=== PATIENT | male | born 1990 | race Caucasian/White ===

== ENCOUNTER 2017-09-24 12:48 | Emergency (ER) | payer BC ==
--- NOTE | 2017-09-24 14:57 | Emergency Department Record ---
History of Present Illness - General Chief complaint: ENT Stated complaint: SORE THROAT,DIZZINESS Time Seen by Provider: 09/24/17 14:52 Source: Patient Mode of Arrival: Ambulatory Limitations: No limitations - History of Present Illness Initial comments: The patient is here due to a 1-[address] a [address] with mild cough. He felt lightheaded this AM but is better now. He denies any MARIA, Sputum production, fever, chills, or vomiting. MD complaint: Sore throat Onset/Timin -: Days(s) Location: Throat - Related Data Previous Rx's Medication Instructions Recorded Prednisone [Prednisone 20Mg] 40 mg PO DAILY #8 tab 09/24/17 Allergies Allergy/AdvReac Type Severity Reaction Status Date / Time No Known Drug Allergies Allergy Verified 09/24/17 13:57 Travel Screening - Travel/Exposure Within Last 30 Days Have you traveled within the last 30 days?: No Review of Systems Constitutional: Denies: Chills, Fever Eyes: Denies: Eye discharge ENT: Reports: Throat pain. Denies: Congestion Respiratory: Denies: Cough, Dyspnea Past Medical History - SOCIAL HISTORY Smoking Status: Never smoker Alcohol Use: Occasional Drug Use: None - RESPIRATORY Hx Respiratory Disorders: Yes Hx Asthma: Yes - CARDIOVASCULAR Hx Cardio Disorders: No - NEURO Hx Neuro Disorders: No - GI Hx GI Disorders: No - Hx Genitourinary Disorders: Yes Hx Kidney Stones: Yes - ENDOCRINE Hx Endocrine Disorders: No - MUSCULOSKELETAL Hx Musculoskeletal Disorders: No - PSYCH Hx Psych Problems: No - HEMATOLOGY/ONCOLOGY Hx Hematology/Oncology Disorders: No Family Medical History Any Significant Family History?: Yes Hx Stroke: Father Physical Exam - General General Appearance: Alert, Oriented x3, Cooperative, No acute distress - Head Head exam: Atraumatic, Normocephalic, Normal inspection - Eye Eye exam: Normal appearance, PERRL - ENT Teeth exam: Other Throat exam: Tonsillar erythema. negative: Normal inspection, Tonsillomegaly, Tonsillar exudate, R peritonsillar mass, L peritonsillar mass - Neck Neck exam: Normal inspection, Full ROM. negative: Lymphadenopathy, Meningismus , Tenderness - Respiratory Respiratory exam: Normal lung sounds bilaterally. negative: Respiratory distress - Cardiovascular Cardiovascular Exam: Regular rate, Normal rhythm, Normal heart sounds - Extremities Extremities exam: Normal inspection, Full ROM, Normal capillary refill. negative: Tenderness Course Vital Signs 09/24/17 09/24/17 13:52 14:14 Temperature 97.9 F Pulse Rate 66 Respiratory 18 Rate Blood Pressure 131/71 Pulse Ox 98 - Reevaluation(s) Reevaluation #1: I did inform the patient of the neg Strep test. He will be discharged on Tylenol and a short course of Pred. 09/24/17 15:13 09/24/17 15:13 Medical Decision Making - Data Complexity MDM Data: Labs Ordered and/or Reviewed (Strep: Neg) Disposition Disposition: Discharge Clinical Impression: Viral URI Disposition: Home, Self-Care Condition: (2) Stable Instructions: Viral Syndrome (ED) Additional Instructions: Please take Tylenol or Motrin for pain and take the Prednisone as directed. Please see your PCP for recheck in 3 days if not better and return to the ER if worse. Prescriptions: Prednisone [Prednisone 20Mg] 40 mg PO DAILY #8 tab Forms: Patient Portal Access Time of Disposition: 15:14 Quality - Quality Measures Quality Measures: N/A - Blood Pressure Screening View Details: Yes Does Patient Have Any of the Following: No Blood Pressure Classification: Pre-Hypertensive BP Reading Systolic Measurement: 131 Diastolic Measurement: 71 Screening for High Blood Pressure: < Pre-Hypertensive BP, F/U Documented > [ G8950] Pre-Hypertensive Follow-up Interventions: Referral to alternative/primary care provider.
== END 2017-09-24 15:21 | disposition home or self-care (01) ==
LOC: ER 12:48
DX: J06.9 Acute upper respiratory infection, unspecified (principal); R42 Dizziness and giddiness
CPT/HCPCS: 87880; 99282

== ENCOUNTER 2017-11-19 16:45 | Emergency (ER) | payer BC ==
[2017-11-19 17:17] LABS: INFLUENZA A NEGATIVE (NEGATIVE); INFLUENZA B NEGATIVE (NEGATIVE)
[2017-11-19] MEDS ORDERED: PREDNISONE 20 MG TAB PO ONE (17:18)
[2017-11-19] MEDS ORDERED: IPRATROPIUM/ALBUTEROL (0.5MG/3MG) NEB INH ONE (17:18)
--- NOTE | 2017-11-19 17:25 | Emergency Department Record ---
History of Present Illness - General Chief Complaint: Cough Stated Complaint: MELONY,COUGH Time Seen by Provider: 11/19/17 17:12 Source: Patient Mode of Arrival: Ambulatory Limitations: No limitations - History of Present Illness Initial Comments: 27 yo male presents with cough, some yellow sputum, aches. He has a history of asthma. He has been using an inhaler without significant improvement. No NVD. No chest pain. No abdominal pain. MD Complaint: Cough, Nasal congestion, Rhinorrhea, Sore throat Onset/Timin -: Days(s) Severity: Moderate Consistency: Constant - Related Data Previous Rx's Medication Instructions Recorded Albuterol Sulfate [Proair Hfa] 1 - 2 puff IH .EVERY 4-6 HOURS PRN 11/19/17 #1 inhaler Azithromycin [Zithromax] 250 mg PO DAILY #6 tablet 11/19/17 Prednisone [Prednisone 20Mg] 20 mg PO BID #10 tab 11/19/17 Allergies Allergy/AdvReac Type Severity Reaction Status Date / Time No Known Drug Allergies Allergy Verified 09/24/17 13:57 Travel Screening - Travel/Exposure Within Last 30 Days Have you traveled within the last 30 days?: No Review of Systems Constitutional: Denies: Chills, Fever, Malaise, Weakness Eyes: Denies: Eye discharge ENT: Reports: Congestion Respiratory: Reports: Cough, Wheezes. Denies: Hemoptysis Cardiovascular: Denies: Chest pain, Palpitations, Syncope Endocrine: Denies: Fatigue Gastrointestinal: Denies: Abdominal pain, Diarrhea, Nausea, Vomiting Genitourinary: Denies: Dysuria, Frequency, Hematuria Musculoskeletal: Reports: Myalgia. Denies: Arthralgia, Back pain, Joint swelling Skin: Denies: Bruising, Change in color, Rash Neurological: Denies: Headache, Numbness, Weakness Psychiatric: Denies: Anxiety Hematological/Lymphatic: Denies: Easy bleeding, Easy bruising, Swollen glands Past Medical History - SOCIAL HISTORY Smoking Status: Never smoker - RESPIRATORY Hx Respiratory Disorders: Yes Hx Asthma: Yes - CARDIOVASCULAR Hx Cardio Disorders: No - NEURO Hx Neuro Disorders: No - GI Hx GI Disorders: No - Hx Genitourinary Disorders: Yes Hx Kidney Stones: Yes - ENDOCRINE Hx Endocrine Disorders: No - MUSCULOSKELETAL Hx Musculoskeletal Disorders: No - PSYCH Hx Psych Problems: No - HEMATOLOGY/ONCOLOGY Hx Hematology/Oncology Disorders: No Family Medical History Any Significant Family History?: Yes Hx Stroke: Father Physical Exam - General General Appearance: Alert, Oriented x3, Cooperative, No acute distress Limitations: No limitations - Head Head exam: Normal inspection - Eye Eye exam: Normal appearance. negative: Conjunctival injection, Scleral icterus - ENT ENT exam: Normal exam, Mucous membranes moist, Normal orophraynx Ear exam: Normal external inspection Nasal Exam: Normal inspection Mouth exam: Normal external inspection Teeth exam: Normal inspection Throat exam: Normal inspection - Neck Neck exam: Normal inspection, Full ROM. negative: Tenderness - Respiratory Respiratory exam: Decreased breath sounds, Prolonged expiratory (mild), Rhonchi (few scattered), Wheezes. negative: Normal lung sounds bilaterally, Accessory muscle use, Rales - Cardiovascular Cardiovascular Exam: Regular rate, Normal rhythm, Normal heart sounds - GI/Abdominal GI/Abdominal exam: Soft. negative: Tenderness - Rectal Rectal exam: Deferred - exam: Deferred - Extremities Extremities exam: Normal inspection, Full ROM, Normal capillary refill. negative: Tenderness - Back Back exam: Reports: Normal inspection, Full ROM. Denies: Muscle spasm, Rash noted, Tenderness - Neurological Neurological exam: Alert, Normal gait, Oriented X3 - Psychiatric Psychiatric exam: Normal affect, Normal mood - Skin Skin exam: Dry, Intact, Normal color, Warm Course Vital Signs 11/19/17 16:49 Temperature 99.2 F Pulse Rate 108 H Respiratory 20 Rate Blood Pressure 115/68 Pulse Ox 96 - Reevaluation(s) Reevaluation #1: The influenza swabs were negative 11/19/17 17:29 Medical Decision Making - Lab Data Lab Results 11/19/17 Range/Units 17:00 Influenza Type A Ag Negative (NEGATIVE) Influenza Type B Ag Negative (NEGATIVE) Disposition Disposition: Discharge Clinical Impression: Bronchitis, Asthma exacerbation Disposition: Home, Self-Care Condition: (1) Good Instructions: Asthma (ED), Acute Bronchitis (ED) Additional Instructions: Call your doctor for close follow up of your symptoms Return to the ED if worse Prescriptions: Albuterol Sulfate [Proair Hfa] 1 - 2 puff IH .EVERY 4-6 HOURS PRN #1 inhaler PRN Reason: Difficulty In Breathing Azithromycin [Zithromax] 250 mg PO DAILY #6 tablet Prednisone [Prednisone 20Mg] 20 mg PO BID #10 tab Forms: Patient Portal Access Time of Disposition: 17:33 Quality - Quality Measures Quality Measures: N/A - Blood Pressure Screening Does Patient Have Any of the Following: No Blood Pressure Classification: Normal BP Reading Systolic Measurement: 115 Diastolic Measurement: 68 Screening for High Blood Pressure: < Normal BP, F/U Not Required > [G8783]
== END 2017-11-19 18:03 | disposition home or self-care (01) ==
LOC: ER 16:45
DX: J45.901 Unspecified asthma with (acute) exacerbation (principal)
CPT/HCPCS: 99283 ×2; 87400; 94640; J7512

== ENCOUNTER 2018-06-30 05:36 | Emergency (ER) | payer BC ==
[2018-06-30] MEDS ORDERED: IPRATROPIUM/ALBUTEROL (0.5MG/3MG) NEB INH ONE (05:43)
[2018-06-30] MEDS ORDERED: PREDNISONE 20 MG TAB PO ONE (05:57)
--- NOTE | 2018-06-30 06:05 | Emergency Department Record ---
History of Present Illness - General Chief Complaint: Wheezing Stated Complaint: ASTHMA Time Seen by Provider: 06/30/18 05:43 Source: Patient Mode of Arrival: Ambulatory Limitations: No limitations - History of Present Illness Initial Comments: The patient is here due to a one week hx of cough, congestion and SOB. He has a hx of mild asthma and the infection has flared his asthma up. The patient states his coughing and wheezing are worse at night also. He denies any fever, chills, CP, ST or back pain. The patient has never been admitted to the hospital for asthma but has been to the ER for it. MD Complaint: "Asthma attack", Shortness of breath Onset/Timin -: Week(s) Severity: Moderate Context: Other Associated Symptoms: Productive cough Treatments Prior to Arrival: Inhaled bronchodilator - Related Data Current Asthma Therapy: Inhaled bronchodilator Previous Rx's Medication Instructions Recorded Albuterol Sulfate [Proair Hfa] 1 - 2 puff IH .EVERY 4-6 HOURS PRN 11/19/17 #1 inhaler Azithromycin [Zithromax] 250 mg PO ASDIR #6 tab 06/30/18 Prednisone [Prednisone 20Mg] 40 mg PO DAILY #8 tab 06/30/18 Allergies Allergy/AdvReac Type Severity Reaction Status Date / Time No Known Drug Allergies Allergy Unverified 06/13/18 10:39 Travel Screening - Travel/Exposure Within Last 30 Days Have you traveled within the last 30 days?: No - Travel Symptoms Symptom Screening: None Review of Systems Constitutional: Denies: Chills, Fever Eyes: Denies: Eye discharge ENT: Reports: Congestion Respiratory: Reports: Cough, Dyspnea. Denies: Hemoptysis Cardiovascular: Denies: Chest pain Past Medical History - SOCIAL HISTORY Smoking Status: Never smoker Alcohol Use: Occasional Drug Use: None - RESPIRATORY Hx Respiratory Disorders: Yes Hx Asthma: Yes - CARDIOVASCULAR Hx Cardio Disorders: No - NEURO Hx Neuro Disorders: No - GI Hx GI Disorders: No - Hx Genitourinary Disorders: Yes Hx Kidney Stones: Yes - ENDOCRINE Hx Endocrine Disorders: No - MUSCULOSKELETAL Hx Musculoskeletal Disorders: No - PSYCH Hx Psych Problems: No - HEMATOLOGY/ONCOLOGY Hx Hematology/Oncology Disorders: No Family Medical History Any Significant Family History?: Yes Hx Stroke: Father Physical Exam - General General Appearance: Alert, Oriented x3, Cooperative, No acute distress - Head Head exam: Atraumatic, Normocephalic, Normal inspection - Eye Eye exam: Normal appearance, PERRL, EOMI - ENT Throat exam: Normal inspection. negative: Tonsillar erythema, Tonsillar exudate - Neck Neck exam: Normal inspection, Full ROM. negative: Tenderness - Respiratory Respiratory exam: Wheezes (There are mild wheezes at the bases.). negative: Normal lung sounds bilaterally (The patient is speaking in full sentences with no retractions or fast breathing. ), Accessory muscle use, Respiratory distress , Rhonchi, Stridor - Cardiovascular Cardiovascular Exam: Regular rate, Normal rhythm, Normal heart sounds - GI/Abdominal GI/Abdominal exam: Soft, Normal bowel sounds. negative: Tenderness - Extremities Extremities exam: Normal inspection, Full ROM, Normal capillary refill. negative: Tenderness Course Vital Signs 06/30/18 06/30/18 05:41 05:49 Temperature 97.8 F Pulse Rate 80 Pulse Rate [ 87 Pulse Ox Probe] Respiratory 16 16 Rate Blood Pressure 116/92 [Left Arm] Pulse Ox 99 - Reevaluation(s) Reevaluation #1: The patient did receive a Duoneb tx and his lungs are now clear with no wheezing or rhonchi. He feels ready for home. 06/30/18 06:02 Disposition Disposition: Discharge Clinical Impression: Asthma attack Qualifiers: Asthma severity: mild Asthma persistence: unspecified Qualified Code(s): J45.901 - Unspecified asthma with (acute) exacerbation Disposition: Home, Self-Care Condition: (2) Stable Instructions: Asthma (ED) Additional Instructions: Please continue your inhallers and add the Prednisone and Zithromax. Please see your family doctor if not better in 3 days and return to the ER for any worsening symptoms, chest pain, shortness of breath or wheezing. Prescriptions: Azithromycin [Zithromax] 250 mg PO ASDIR #6 tab Prednisone [Prednisone 20Mg] 40 mg PO DAILY #8 tab Forms: Patient Portal Access Time of Disposition: 06:04 Quality - Quality Measures Quality Measures: N/A - Blood Pressure Screening View Details: Yes Does Patient Have Any of the Following: No Blood Pressure Classification: Hypertensive Reading Systolic Measurement: 116 Diastolic Measurement: 92 Screening for High Blood Pressure: < First Hypertensive BP, F/U Documented > [ G8950] First Hypertensive Follow-up Interventions: Referral to alternative/primary care provider.
== END 2018-06-30 06:13 | disposition home or self-care (01) ==
LOC: ER 05:36
DX: J45.901 Unspecified asthma with (acute) exacerbation (principal); R06.02 Shortness of breath
CPT/HCPCS: 99283 ×2; 94640; J7512

== ENCOUNTER 2018-12-15 07:20 | Emergency (ER) | payer BC ==
--- NOTE | 2018-12-15 07:54 | Emergency Department Record ---
History of Present Illness - General Chief complaint: Cold Stated complaint: SINUS PAIN Time Seen by Provider: 12/15/18 07:29 Source: Patient Mode of Arrival: Ambulatory Limitations: No limitations - History of Present Illness Initial comments: pt woke up with a sudden bad miramontes at 4am on thr r side of his head. he then had sinus drainage. he has a sore throat. he went to work and they sent him here stating that he looked bad. MD complaint: Other Onset/Timin -: Hour(s) Severity scale (1-10): 3 Quality: Aching Consistency: Constant Improves with: None Worsens with: None Associated Symptoms: Cough, Sore throat - Related Data Previous Rx's Medication Instructions Recorded Albuterol Sulfate [Proair Hfa] 1 - 2 puff IH .EVERY 4-6 HOURS PRN 11/19/17 #1 inhaler Allergies Allergy/AdvReac Type Severity Reaction Status Date / Time No Known Drug Allergies Allergy Verified 12/15/18 07:29 Travel Screening - Travel/Exposure Within Last 30 Days Have you traveled within the last 30 days?: No Review of Systems Reviewed: No additional complaints except as noted below Constitutional: Reports: As per HPI. Denies: Chills, Fever, Malaise, Night sweats, Weakness, Weight change Eyes: Reports: As per HPI. Denies: Eye discharge, Eye pain, Photophobia, Vision change ENT: Reports: As per HPI, Congestion. Denies: Dental pain, Ear pain, Epistaxis , Hearing loss, Throat pain Respiratory: Reports: As per HPI, Cough. Denies: Dyspnea, Hemoptysis, Stridor, Wheezes Cardiovascular: Reports: As per HPI. Denies: Arrhythmia, Chest pain, Dyspnea on exertion, Edema, Murmurs, Orthopnea, Palpitations, Paroxysmal nocturnal dyspnea, Rheumatic Fever, Syncope Endocrine: Reports: As per HPI. Denies: Fatigue, Heat or cold intolerance, Polydipsia, Polyuria Gastrointestinal: Reports: As per HPI. Denies: Abdominal pain, Constipation, Diarrhea, Hematemesis, Hematochezia, Melena, Nausea, Vomiting Genitourinary: Reports: As per HPI. Denies: Dysuria, Frequency, Hematuria, Incontinence, Retention, Testicular pain, Testicular mass, Urgency Musculoskeletal: Reports: As per HPI. Denies: Arthralgia, Back pain, Gout, Joint swelling, Myalgia, Neck pain Skin: Reports: As per HPI. Denies: Bruising, Change in color, Change in hair/ nails, Lesions, Pruritus, Rash Neurological: Reports: As per HPI. Denies: Abnormal gait, Confusion, Headache, Numbness, Paresthesias, Seizure, Tingling, Tremors, Vertigo, Weakness Psychiatric: Reports: As per HPI. Denies: Anxiety, Auditory hallucinations, Depression, Homicidal thoughts, Suicidal thoughts, Visual hallucinations Hematological/Lymphatic: Reports: As per HPI. Denies: Anemia, Blood Clots, Easy bleeding, Easy bruising, Swollen glands Past Medical History - SOCIAL HISTORY Smoking Status: Never smoker Alcohol Use: Occasional Drug Use: None - RESPIRATORY Hx Respiratory Disorders: Yes Hx Asthma: Yes - CARDIOVASCULAR Hx Cardio Disorders: No - NEURO Hx Neuro Disorders: No - GI Hx GI Disorders: No - Hx Genitourinary Disorders: Yes Hx Kidney Stones: Yes - ENDOCRINE Hx Endocrine Disorders: No - MUSCULOSKELETAL Hx Musculoskeletal Disorders: No - PSYCH Hx Psych Problems: No - HEMATOLOGY/ONCOLOGY Hx Hematology/Oncology Disorders: No Family Medical History Any Significant Family History?: Yes Hx Stroke: Father Physical Exam - General General Appearance: Alert, Oriented x3, Cooperative, Mild distress - Head Head exam: Normal inspection - Eye Eye exam: Normal appearance, PERRL, EOMI Pupils: Normal accommodation - ENT ENT exam: Normal exam, Mucous membranes moist, Normal external ear exam, Normal orophraynx, TM's normal bilaterally Ear exam: Normal external inspection. negative: External canal tenderness Nasal Exam: Sinus tenderness. negative: Discharge Mouth exam: Normal external inspection, Tongue normal Teeth exam: Normal inspection. negative: Dental caries Throat exam: Tonsillar erythema. negative: Tonsillar exudate - Neck Neck exam: Normal inspection, Full ROM. negative: Tenderness - Respiratory Respiratory exam: Normal lung sounds bilaterally. negative: Respiratory distress - Cardiovascular Cardiovascular Exam: Regular rate, Normal rhythm, Normal heart sounds - GI/Abdominal GI/Abdominal exam: Soft, Normal bowel sounds. negative: Tenderness - Rectal Rectal exam: Deferred - exam: Deferred - Extremities Extremities exam: Normal inspection, Full ROM, Normal capillary refill. negative: Tenderness - Back Back exam: Reports: Normal inspection, Full ROM. Denies: Muscle spasm, Rash noted, Tenderness - Neurological Neurological exam: Alert, CN II-XII intact, Normal gait, Oriented X3 - Psychiatric Psychiatric exam: Normal affect, Normal mood - Skin Skin exam: Dry, Intact, Normal color, Warm Course Vital Signs 12/15/18 07:25 Temperature 98.1 F Pulse Rate [ 85 Pulse Ox Probe] Respiratory 20 Rate Blood Pressure 118/89 [Left Arm] Pulse Ox 97 Medical Decision Making - Lab Data Result diagrams: 12/15/18 07:50 12/15/18 07:50 Disposition Disposition: Discharge Clinical Impression: Viral syndrome Disposition: Home, Self-Care Condition: (1) Good Instructions: Viral Syndrome (ED) Additional Instructions: follow up with family doctor. rest return sooner if worse. tylenol or motrin as needed. push fluids Forms: Patient Portal Access, Return to Work/School Quality - Quality Measures Quality Measures: N/A - Blood Pressure Screening Does Patient Have Any of the Following: No Blood Pressure Classification: Pre-Hypertensive BP Reading Systolic Measurement: 118 Diastolic Measurement: 89 Screening for High Blood Pressure: < Pre-Hypertensive BP, F/U Documented > [ G8950] Pre-Hypertensive Follow-up Interventions: Follow-up with rescreen every year.
[2018-12-15 07:59] LABS: BASO % 0.6 % (0-6); EOS % 8.9 % (0-6); GRAN % 65.9 % (47-80); HEMATOCRIT 44.6 % (42.0-52.0); HEMOGLOBIN 15.8 gm/dl (14.0-18.0); LYMPH % 18.6 % (16-45); MEAN CELL VOLUME 89.4 fl (81-97); MEAN CORPUSCULAR HEMOGLOBIN 31.7 pg (27-33); MEAN CORPUSCULAR HGB CONC 35.4 g/dl (32-36); MEAN PLATELET VOLUME 10.1 fl (7.4-10.4); PLATELET COUNT 332 K/uL (130-400); RED BLOOD COUNT 4.99 M/uL (4.40-5.70); RED CELL DISTRIBUTION WIDTH 13.2 % (11.5-14.5)
[2018-12-15 08:03] LABS: STREP A SCREEN NEGATIVE (NEGATIVE)
[2018-12-15 08:09] LABS: BLOOD UREA NITROGEN 12 mg/dL (6-20)
[2018-12-15 08:10] LABS: CREATININE 0.9 mg/dL (0.7-1.2); EST GLOMERULAR FILTRATION RATE > 60 mL/min
[2018-12-15 08:12] LABS: GLUCOSE,RANDOM 110 mg/dL (74-109)
[2018-12-15 08:13] LABS: INFLUENZA A NEGATIVE (NEGATIVE); INFLUENZA B NEGATIVE (NEGATIVE)
--- NOTE | 2018-12-16 12:13 | CT SCAN REPORT ---
EXAM: NONCONTRAST CT OF THE BRAIN HISTORY: RIGHT SINUS PAIN, HEADACHE. TECHNIQUE: Noncontrast CT of the brain was obtained. Comparison: None. FINDINGS: No midline shift, mass effect, or abnormal intra or extraaxial fluid collection. No cerebral edema, focal mass or intracranial hemorrhage detected. The ventricle sizes are within normal limits. The basal cisterns are not effaced. Mild partial opacification of bilateral ethmoid air cells. Minimal right maxillary sinus mucosal thickening. Rightward deviation of the nasal septum. No displaced calvarial fracture detected. IMPRESSION: 1. NO ACUTE INTRACRANIAL FINDINGS. 2. MILD PARTIAL OPACIFICATION OF THE ETHMOID AIR CELLS BILATERALLY. MINIMAL ASYMMETRIC RIGHT MAXILLARY SINUS MUCOSAL THICKENING. JOB NUMBER: [id number] [facility]
== END 2018-12-15 08:30 | disposition home or self-care (01) ==
LOC: ER 07:20
DX: B34.9 Viral infection, unspecified (principal); J02.9 Acute pharyngitis, unspecified; R51 Headache
CPT/HCPCS: 70450; 80048; 85025; 87400; 87880; 99283

== ENCOUNTER 2019-01-30 11:38 | Emergency (ER) | payer BC ==
[2019-01-30] MEDS ORDERED: 0.9 % SODIUM CHLORIDE 1,000 ML BAG IV ONE (11:47)
--- NOTE | 2019-01-30 11:53 | Emergency Department Record ---
History of Present Illness - General Chief complaint: General Stated complaint: LIGHTHEADED Time Seen by Provider: 01/30/19 11:40 Source: Patient Mode of Arrival: Ambulatory Limitations: No limitations - History of Present Illness Initial comments: 28 yo male states he has not felt well since about 6am. He woke up at 5:15am and felt normal. He states he began to feel weak, shaky, lightheaded, some palpitations. He felt like his heart rate was fast then slow. No headache, vision changes, syncope, dizziness, speech or hearing changes. No cough, s hortness of breath, chest or back pain. No recent illness. He states his allergies to pollen have been his only recent concerns. No nausea, vomiting or diarrhea. He was sent from work given the persistence of the symptoms. No PCP. MD Complaint: Generalized weakness -: Hour(s) (5) Location: Generalized Severity: Moderate Quality: Other (shaky) Improves with: None Worsens with: Exertion Context: Other Associated Symptoms: Other - [place] Coma Scale Eye Response: (4) Open spontaneously Motor Response: (6) Obeys commands Verbal Response: (5) Oriented [place] Total: 15 - Related Data Previous Rx's Medication Instructions Recorded Albuterol Sulfate [Proair Hfa] 1 - 2 puff IH .EVERY 4-6 HOURS PRN 11/19/17 #1 inhaler Allergies Allergy/AdvReac Type Severity Reaction Status Date / Time No Known Drug Allergies Allergy Verified 12/15/18 07:29 Travel Screening - Travel/Exposure Within Last 30 Days Have you traveled within the last 30 days?: No Review of Systems Constitutional: Reports: Weakness. Denies: Chills, Fever, Malaise, Night sweats Eyes: Denies: Eye discharge, Eye pain, Photophobia, Vision change ENT: Denies: Congestion, Ear pain, Epistaxis, Throat pain Respiratory: Denies: Cough, Dyspnea, Hemoptysis, Stridor, Wheezes Cardiovascular: Reports: Palpitations. Denies: Chest pain, Dyspnea on exertion, Edema, Syncope Endocrine: Reports: Fatigue. Denies: Polydipsia, Polyuria Gastrointestinal: Denies: Abdominal pain, Constipation, Diarrhea, Hematochezia, Melena, Nausea, Vomiting Genitourinary: Denies: Dysuria, Frequency, Hematuria Musculoskeletal: Denies: Arthralgia, Back pain, Joint swelling, Myalgia, Neck pain Skin: Denies: Bruising, Change in color, Rash Neurological: Denies: Confusion, Headache Psychiatric: Denies: Anxiety Hematological/Lymphatic: Denies: Blood Clots, Easy bleeding, Easy bruising, Swollen glands Past Medical History - SOCIAL HISTORY Smoking Status: Never smoker Alcohol Use: None Drug Use: None - RESPIRATORY Hx Respiratory Disorders: Yes Hx Asthma: Yes - CARDIOVASCULAR Hx Cardio Disorders: No - NEURO Hx Neuro Disorders: No - GI Hx GI Disorders: No - Hx Genitourinary Disorders: Yes Hx Kidney Stones: Yes - ENDOCRINE Hx Endocrine Disorders: No - MUSCULOSKELETAL Hx Musculoskeletal Disorders: No - PSYCH Hx Psych Problems: No - HEMATOLOGY/ONCOLOGY Hx Hematology/Oncology Disorders: No Family Medical History Any Significant Family History?: Yes Hx Stroke: Father Physical Exam - General General Appearance: Alert, Oriented x3, Cooperative, No acute distress Limitations: No limitations - Head Head exam: Atraumatic, Normocephalic, Normal inspection - Eye Eye exam: Normal appearance, PERRL, EOMI, Other (No visual field changes). negative: Conjunctival injection, Nystagmus, Scleral icterus - ENT ENT exam: Normal exam, Mucous membranes moist, Normal external ear exam Ear exam: Normal external inspection Nasal Exam: Normal inspection Mouth exam: Normal external inspection Teeth exam: Normal inspection Throat exam: Normal inspection. negative: Tonsillar erythema, Tonsillomegaly, Tonsillar exudate, R peritonsillar mass, L peritonsillar mass - Neck Neck exam: Normal inspection, Full ROM. negative: Lymphadenopathy, Tenderness, Thyromegaly - Respiratory Respiratory exam: Normal lung sounds bilaterally. negative: Respiratory distress, Rhonchi, Stridor, Wheezes - Cardiovascular Cardiovascular Exam: Regular rate, Normal rhythm, Normal heart sounds. negative: Diastolic murmur, Irregular rhythm, Systolic murmur Peripheral Pulses: 2+: Radial (R), Radial (L) - GI/Abdominal GI/Abdominal exam: Soft. negative: Distended, Guarding, Tenderness - Rectal Rectal exam: Deferred - exam: Deferred - Extremities Extremities exam: Normal inspection, Full ROM. negative: Joint swelling, Pedal edema, Tenderness - Back Back exam: Denies: CVA tenderness (R), CVA tenderness (L), Rash noted - Neurological Neurological exam: Alert, CN II-XII intact, Normal gait, Oriented X3, Reflexes normal. negative: Abnormal gait, Altered, Motor sensory deficit - Psychiatric Psychiatric exam: Normal affect, Normal mood. negative: Agitated, Anxious - Skin Skin exam: Dry, Intact, Normal color, Warm Course Vital Signs 01/30/19 11:41 Temperature 98.1 F Respiratory 18 Rate Blood Pressure 134/100 - Reevaluation(s) Reevaluation #1: The labs were reviewed No acute changes on the CBC or CMP 01/30/19 12:22 EKG #1: 11:56 Rate: 78 Rhythm: sinus [place]key: normal Intervals: normal ST segments: no acute changes Prior: none 01/30/19 12:24 01/30/19 13:00 The patient is doing well He is feeling much better We discussed off work given he works in a very hot environment He was given home care instructions as well as reasons for immediate return to the ED Medical Decision Making - Lab Data Result diagrams: 01/30/19 11:50 01/30/19 11:50 Disposition Disposition: Discharge Clinical Impression: Weakness, Palpitations Disposition: Home, Self-Care Condition: (1) Good Instructions: Lightheadedness (ED) Additional Instructions: Call for a new family doctor for the next available follow up appointment Review this ER visit and the tests performed with your family doctor Return to the ER for a recheck if worse, any new concerns or questions Referrals: YE ORANTES M.D. [MEDICAL DOCTOR] - Forms: Patient Portal Access Time of Disposition: 13:02 Quality - Quality Measures Quality Measures: N/A - Blood Pressure Screening Does Patient Have Any of the Following: No Blood Pressure Classification: Normal BP Reading Systolic Measurement: 105 Diastolic Measurement: 70 Screening for High Blood Pressure: < Normal BP, F/U Not Required > [G8783]
[2019-01-30 11:58] LABS: ABSOLUTE NEUTROPHIL COUNT 2.94; BASO % 1.1 % (0-6); EOS % 7.5 % (0-6); GRAN % 52.8 % (47-80); HEMATOCRIT 44.5 % (42.0-52.0); HEMOGLOBIN 15.7 gm/dl (14.0-18.0); LYMPH % 32.3 % (16-45); MEAN CELL VOLUME 90.4 fl (81-97); MEAN CORPUSCULAR HEMOGLOBIN 31.9 pg (27-33); MEAN CORPUSCULAR HGB CONC 35.3 g/dl (32-36); MEAN PLATELET VOLUME 9.8 fl (7.4-10.4); MONO % 6.3 % (0-9); PLATELET COUNT 321 K/uL (130-400); RED BLOOD COUNT 4.92 M/uL (4.40-5.70); RED CELL DISTRIBUTION WIDTH 13.2 % (11.5-14.5); WHITE BLOOD COUNT W/O DIFF 5.6 K/uL (4.2-12.2)
[2019-01-30 12:11] LABS: BLOOD UREA NITROGEN 9 mg/dL (6-20)
[2019-01-30 12:12] LABS: CREATININE 0.8 mg/dL (0.7-1.2); EST GLOMERULAR FILTRATION RATE > 60 mL/min; TOTAL PROTEIN 7.8 g/dL (6.6-8.7)
[2019-01-30 12:14] LABS: GLUCOSE,RANDOM 117 mg/dL (74-109)
[2019-01-30 12:17] LABS: ALB/GLOB RATIO 1.8 (1.1-1.8); ALKALINE PHOSPHATASE 75 U/L (40-129); ALT/SGPT 19 U/L (<41); AST/SGOT 22 U/L (10.0-50.0)
== END 2019-01-30 13:10 | disposition home or self-care (01) ==
LOC: ER 11:38
DX: R53.1 Weakness (principal); R00.2 Palpitations; R42 Dizziness and giddiness
CPT/HCPCS: 80053; 85025; 93005; 93010; 96360; 99284; J7030

== ENCOUNTER 2019-03-13 14:07 | Emergency (ER) | payer SELFPAY ==
--- NOTE | 2019-03-13 14:20 | Emergency Department Record ---
History of Present Illness - General Chief Complaint: Laceration(s) Stated Complaint: DUNHAM LAC LEFT LEG Time Seen by Provider: 03/13/19 14:14 Source: Patient Mode of Arrival: Ambulatory Limitations: No limitations - History of Present Illness Initial Commments: 28 yo male presents with a dunham laceration from a part that fell on his leg at work. He is unsure when his last tetanus shot was given. No numbness or tingling. The injury occurred at work from a falling metal part. -: Minutes(s) Extremity Location: Left: Lower leg Place: Home Context: Accidental, Sharp object use Associated Symptoms: None Treatments Prior to Arrival: Bandage - [place] Coma Scale Eye Response: (4) Open spontaneously Motor Response: (6) Obeys commands Verbal Response: (5) Oriented [place] Total: 15 - Related Data Home Medications Medication Instructions Recorded Confirmed Last Taken No Home Med [NO HOME MEDS] 03/13/19 03/13/19 Unknown Allergies Allergy/AdvReac Type Severity Reaction Status Date / Time No Known Drug Allergies Allergy Verified 12/15/18 07:29 Review of Systems Constitutional: Denies: Chills, Fever, Weakness Eyes: Denies: Eye discharge ENT: Denies: Congestion, Throat pain Respiratory: Denies: Cough Cardiovascular: Denies: Chest pain Endocrine: Denies: Fatigue Gastrointestinal: Denies: Abdominal pain, Diarrhea, Nausea, Vomiting Genitourinary: Denies: Dysuria, Frequency, Hematuria Musculoskeletal: Denies: Arthralgia, Back pain, Myalgia Skin: Reports: Other (Laceration) Neurological: Denies: Numbness, Tingling, Weakness Psychiatric: Denies: Anxiety Hematological/Lymphatic: Denies: Easy bleeding, Easy bruising Past Medical History - SOCIAL HISTORY Smoking Status: Never smoker Drug Use: None - RESPIRATORY Hx Respiratory Disorders: Yes Hx Asthma: Yes - CARDIOVASCULAR Hx Cardio Disorders: No - NEURO Hx Neuro Disorders: No - GI Hx GI Disorders: No - Hx Genitourinary Disorders: Yes Hx Kidney Stones: Yes - ENDOCRINE Hx Endocrine Disorders: No - MUSCULOSKELETAL Hx Musculoskeletal Disorders: No - PSYCH Hx Psych Problems: No - HEMATOLOGY/ONCOLOGY Hx Hematology/Oncology Disorders: No Family Medical History Hx Stroke: Father Physical Exam - General General Appearance: Alert, Oriented x3, Cooperative, No acute distress Limitations: No limitations - Head Head exam: Atraumatic, Normal inspection - Eye Eye exam: Normal appearance. negative: Conjunctival injection, Scleral icterus - ENT ENT exam: Normal exam Ear exam: Normal external inspection Nasal Exam: Normal inspection Mouth exam: Normal external inspection - Neck Neck exam: Normal inspection - Rectal Rectal exam: Deferred - exam: Deferred - Extremities Extremities exam: Full ROM, Normal capillary refill, Other (3cm laceration in a eliptical shape, no FB, clean). negative: Normal inspection, Joint swelling, Tenderness - Back Back exam: Reports: Normal inspection - Neurological Neurological exam: Alert, Oriented X3 - Psychiatric Psychiatric exam: Normal affect, Normal mood - Skin Type of lesion: Laceration Course - Reevaluation(s) Reevaluation #1: 03/13/19 15:04 The XR was read as negative for acute bone injury of FB Procedure: 3 cm laceration of the left dunham Wound was cleaned and prepped in sterile fashion, no residual FB identified on examination. The wound was copiously irrigated with NS Wound was anesthetized with 3 mL of 1% Lidocaine with epinephrine The laceration was repaired with Prolene 3-0. 7 sutures in interrupted fashion. Patient tolerated the procedure well without complications. We discussed home care, reasons for immediate return if any concerns, and suture removal in 12 days Disposition Disposition: Discharge Clinical Impression: Skin laceration Disposition: Home, Self-Care Condition: (1) Good Instructions: Laceration (ED) Additional Instructions: Clean the injury twice daily with mild soap and water Return if you have redness, pain, pus, drainage or any concerns for infection Return in 12 days for suture removal Forms: Patient Portal Access Time of Disposition: 15:06 Quality - Quality Measures Quality Measures: N/A - Blood Pressure Screening Does Patient Have Any of the Following: No Blood Pressure Classification: Pre-Hypertensive BP Reading Systolic Measurement: 148 Diastolic Measurement: 81 Screening for High Blood Pressure: < Pre-Hypertensive BP, F/U Documented > [G8950] Pre-Hypertensive Follow-up Interventions: Referral to alternative/primary care provider.
[2019-03-13] MEDS ORDERED: Diph,Pert(Acell),Tet Vac 0.5 ML SYR IM ONE (14:21)
--- NOTE | 2019-03-14 15:49 | RADIOLOGY REPORT ---
EXAM: LOWER LEG, LEFT HISTORY: LARGE LACERATION FROM METAL OBJECT. TECHNIQUE: AP and lateral views of the left lower leg. COMPARISON: Four views of the left knee dated 06/04/2014. ENCOUNTER: Initial. FINDINGS: There is normal bone mineralization. No fracture, dislocation, or destructive bone lesion is seen. The articular relations to the extent visualized are normal. There is band-like lucent defect within the anterior soft tissues at the mid lower leg level consistent with history of laceration. No definite radio-opaque foreign body. IMPRESSION: NO ACUTE BONE NOR JOINT ABNORMALITY. LACERATION TO THE ANTERIOR SOFT TISSUES OF THE MID LOWER LEG WITHOUT DEFINITE FOREIGN BODY. JOB NUMBER: [id number] MTDD
== END 2019-03-13 15:15 | disposition home or self-care (01) ==
LOC: ER 14:07
DX: S81.812A Laceration without foreign body, left lower leg, initial encounter (principal); W22.8XXA Striking against or struck by other objects, initial encounter; Y92.63 Factory as the place of occurrence of the external cause; Y99.0 Civilian activity done for income or pay
CPT/HCPCS: 12002; 90715; 96372; 99283; 99284

== ENCOUNTER 2019-03-25 17:45 | Emergency (ER) | payer SELFPAY ==
--- NOTE | 2019-03-25 17:57 | Emergency Department Record ---
History of Present Illness - General Chief Complaint: Suture removal Stated Complaint: SUTURE REMOVAL Time Seen by Provider: 03/25/19 17:52 Source: Patient, RN notes reviewed - History of Present Illness Initial Comments: suture removal and placed 13 days ago and healing but may open so will steristrip - Related Data Allergies Allergy/AdvReac Type Severity Reaction Status Date / Time No Known Drug Allergies Allergy Verified 03/25/19 17:58 Review of Systems Reviewed: No additional complaints except as noted below Constitutional: Reports: As per HPI. Denies: Chills, Fever, Malaise, Night sweats, Weakness, Weight change Eyes: Reports: As per HPI. Denies: Eye discharge, Eye pain, Photophobia, Vision change ENT: Reports: As per HPI. Denies: Congestion, Dental pain, Ear pain, Epistaxis, Hearing loss, Throat pain Respiratory: Reports: As per HPI. Denies: Cough, Dyspnea, Hemoptysis, Stridor, Wheezes Cardiovascular: Reports: As per HPI. Denies: Arrhythmia, Chest pain, Dyspnea on exertion, Edema, Murmurs, Orthopnea, Palpitations, Paroxysmal nocturnal dyspnea, Rheumatic Fever, Syncope Endocrine: Reports: As per HPI. Denies: Fatigue, Heat or cold intolerance, Polydipsia, Polyuria Gastrointestinal: Reports: As per HPI. Denies: Abdominal pain, Constipation, Diarrhea, Hematemesis, Hematochezia, Melena, Nausea, Vomiting Genitourinary: Reports: As per HPI. Denies: Dysuria, Frequency, Hematuria, Incontinence, Retention, Testicular pain, Testicular mass, Urgency Musculoskeletal: Reports: As per HPI. Denies: Arthralgia, Back pain, Gout, Joint swelling, Myalgia, Neck pain Skin: Reports: As per HPI. Denies: Bruising, Change in color, Change in hair/ nails, Lesions, Pruritus, Rash Neurological: Reports: As per HPI. Denies: Abnormal gait, Confusion, Headache, Numbness, Paresthesias, Seizure, Tingling, Tremors, Vertigo, Weakness Psychiatric: Reports: As per HPI. Denies: Anxiety, Auditory hallucinations, Depression, Homicidal thoughts, Suicidal thoughts, Visual hallucinations Hematological/Lymphatic: Reports: As per HPI. Denies: Anemia, Blood Clots, Easy bleeding, Easy bruising, Swollen glands Past Medical History - SOCIAL HISTORY Smoking Status: Never smoker Drug Use: None - RESPIRATORY Hx Respiratory Disorders: Yes Hx Asthma: Yes - CARDIOVASCULAR Hx Cardio Disorders: No - NEURO Hx Neuro Disorders: No - GI Hx GI Disorders: No - Hx Genitourinary Disorders: Yes Hx Kidney Stones: Yes - ENDOCRINE Hx Endocrine Disorders: No - MUSCULOSKELETAL Hx Musculoskeletal Disorders: No - PSYCH Hx Psych Problems: No - HEMATOLOGY/ONCOLOGY Hx Hematology/Oncology Disorders: No Family Medical History Hx Stroke: Father Physical Exam - General General Appearance: Alert, Oriented x3, Cooperative, No acute distress - Head Head exam: Normal inspection - Eye Eye exam: Normal appearance, PERRL Pupils: Normal accommodation - ENT ENT exam: Normal exam, Mucous membranes moist, Normal external ear exam, Normal orophraynx, TM's normal bilaterally Ear exam: Normal external inspection. negative: External canal tenderness Nasal Exam: Normal inspection. negative: Discharge, Sinus tenderness Mouth exam: Normal external inspection, Tongue normal Teeth exam: Normal inspection. negative: Dental caries Throat exam: Normal inspection. negative: Tonsillar erythema, Tonsillar exudate - Neck Neck exam: Normal inspection, Full ROM. negative: Tenderness - Respiratory Respiratory exam: Normal lung sounds bilaterally. negative: Respiratory distress - Cardiovascular Cardiovascular Exam: Regular rate, Normal rhythm, Normal heart sounds - GI/Abdominal GI/Abdominal exam: Soft, Normal bowel sounds. negative: Tenderness - Rectal Rectal exam: Deferred - exam: Deferred - Extremities Extremities exam: Normal inspection, Full ROM, Normal capillary refill. negative: Tenderness - Back Back exam: Reports: Normal inspection, Full ROM. Denies: Muscle spasm, Rash noted, Tenderness - Neurological Neurological exam: Alert, Normal gait, Oriented X3, Reflexes normal - Psychiatric Psychiatric exam: Normal affect, Normal mood - Skin Skin exam: Dry, Intact, Normal color, Warm Disposition Clinical Impression: Visit for suture removal Disposition: Home, Self-Care Condition: (1) Good Instructions: Stitches Removal (ED) Additional Instructions: follow up with family DrEma Forms: Patient Portal Access Time of Disposition: 17:56 Quality - Quality Measures Quality Measures: N/A - Blood Pressure Screening Does Patient Have Any of the Following: No Blood Pressure Classification: Pre-Hypertensive BP Reading Systolic Measurement: 126 Diastolic Measurement: 77 Screening for High Blood Pressure: < Pre-Hypertensive BP, F/U Documented > [G8950] Pre-Hypertensive Follow-up Interventions: Referral to alternative/primary care provider.
== END 2019-03-25 18:09 | disposition home or self-care (01) ==
LOC: ER 17:45
DX: Z48.02 Encounter for removal of sutures (principal)

== ENCOUNTER 2019-06-21 12:21 | Emergency (ER) | payer BC ==
[2019-06-21] MEDS ORDERED: KETOROLAC 30 MG/ML VIAL IM ONE (12:29)
[2019-06-21] MEDS ORDERED: HYDROCODONE/APAP 5/325MG TABLET PO ONE (12:29)
--- NOTE | 2019-06-21 12:30 | Emergency Department Record ---
History of Present Illness - General Stated Complaint: FALL INJURY Time Seen by Provider: 06/21/19 12:23 Source: Patient Mode of Arrival: Ambulatory Limitations: No limitations - History of Present Illness Initial Comments: 29 yo male presents after an injury 9 days ago on SaturdayJune 12. His 'renee' picked him up and dropped him on a mirror. He has had left lateral rib pain since then. He denies any other injuries. He has pain to palpation and it hurts to take a deep breath. No hemoptysis. No abdominal pain. No hematuria. No other changes in his health. No lacerations. 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) Fall Witnessed: Yes, by family Place Fall Occurred: Home Loss of Consciousness: None Prolonged Down Time?: No Symptoms Prior to Fall: None Location: Chest Severity: Moderate Quality: Aching, Sharp Context: Alcohol use Associated Symptoms: Chest pain - [place] Coma Scale Eye Response: (4) Open spontaneously Motor Response: (6) Obeys commands Verbal Response: (5) Oriented [place] Total: 15 - Related Data Previous Rx's Medication Instructions Recorded Hydrocodone/Acetaminophen [[place] 1 each PO Q6H #8 tablet 06/21/19 5-325 Tablet] Allergies Allergy/AdvReac Type Severity Reaction Status Date / Time No Known Drug Allergies Allergy Verified 06/01/19 09:00 Review of Systems Constitutional: Denies: Chills, Fever, Malaise, Weakness Eyes: Denies: Eye discharge ENT: Denies: Congestion, Epistaxis, Throat pain Respiratory: Denies: Cough, Dyspnea, Hemoptysis, Stridor, Wheezes Cardiovascular: Reports: Chest pain (left lateral rib) Endocrine: Denies: Fatigue Gastrointestinal: Denies: Abdominal pain, Diarrhea, Nausea, Vomiting Genitourinary: Denies: Dysuria, Frequency, Hematuria Musculoskeletal: Denies: Arthralgia, Back pain, Neck pain Neurological: Denies: Confusion, Weakness Psychiatric: Denies: Anxiety Hematological/Lymphatic: Denies: Easy bleeding, Easy bruising Past Medical History - SOCIAL HISTORY Smoking Status: Never smoker Drug Use: None - RESPIRATORY Hx Respiratory Disorders: Yes Hx Asthma: Yes - CARDIOVASCULAR Hx Cardio Disorders: No - NEURO Hx Neuro Disorders: No - GI Hx GI Disorders: No - Hx Genitourinary Disorders: Yes Hx Kidney Stones: Yes - ENDOCRINE Hx Endocrine Disorders: No - MUSCULOSKELETAL Hx Musculoskeletal Disorders: No - PSYCH Hx Psych Problems: No - HEMATOLOGY/ONCOLOGY Hx Hematology/Oncology Disorders: No Family Medical History Hx Stroke: Father Physical Exam - General General Appearance: Alert, Oriented x3, Cooperative, No acute distress Limitations: No limitations - Head Head exam: Atraumatic, Normocephalic, Normal inspection Head exam detail: negative: Abrasion, Contusion, Hematoma - Eye Eye exam: Normal appearance, PERRL. negative: Conjunctival injection, Scleral icterus - ENT ENT exam: Normal exam, Mucous membranes moist Ear exam: Normal external inspection Nasal Exam: Normal inspection Mouth exam: Normal external inspection - Neck Neck exam: Normal inspection, Full ROM. negative: Tenderness - Respiratory Respiratory exam: Normal lung sounds bilaterally, Chest wall tenderness (tender left lateral mid to lower ribs, non tender lowest rib margins, non tender LUQ). negative: Accessory muscle use, Prolonged expiratory, Rhonchi, Stridor, Wheezes - Cardiovascular Cardiovascular Exam: Regular rate, Normal rhythm, Normal heart sounds, Bradycardia - GI/Abdominal GI/Abdominal exam: Soft - Rectal Rectal exam: Deferred - exam: Deferred - Extremities Extremities exam: Normal inspection, Full ROM. negative: Tenderness Image of Full Body: 1 - tender over 2 ribs laterally, normal inspection, clear lungs, non tender lower ribs or LUQ. - Back Back exam: Denies: CVA tenderness (R), CVA tenderness (L), Full ROM, Muscle spasm, Paraspinal tenderness, Tenderness, Vertebral tenderness - Neurological Neurological exam: Alert, Oriented X3 - Psychiatric Psychiatric exam: Normal affect, Normal mood - Skin Skin exam: Dry, Intact, Normal color, Warm Course - Reevaluation(s) Reevaluation #1: 06/21/19 12:34 Vitals reviewed No acute abnormalities. No hypoxia or tachycardia He is point tender over a reproducible area No crepitus, clear lungs. 06/21/19 13:59 The XR was negative for acute fracture He will be treated with symptomatic treatment We discussed reasons to return for a recheck if not improving this week Disposition Disposition: Discharge Clinical Impression: Contusion of rib on left side Disposition: Home, Self-Care Condition: (1) Good Instructions: Rib Contusion (ED) Additional Instructions: Call your doctor for the next available follow up appointment Return to the ER for a recheck if worse, any new concerns or questions Take the prescriptions provided as directed Prescriptions: Hydrocodone/Acetaminophen [[place] 5-325 Tablet] 1 each PO Q6H #8 tablet Forms: Patient Portal Access Time of Disposition: 14:01 Quality - Quality Measures Quality Measures: N/A - Blood Pressure Screening Does Patient Have Any of the Following: No Blood Pressure Classification: Hypertensive Reading Systolic Measurement: 116 Diastolic Measurement: 93 Screening for High Blood Pressure: < Pre-Hypertensive BP, F/U Documented > [G8950] Pre-Hypertensive Follow-up Interventions: Referral to alternative/primary care provider.
--- NOTE | 2019-06-22 13:13 | RADIOLOGY REPORT ---
EXAM: CHEST AND LEFT RIBS HISTORY: INJURY, LEFT RIB PAIN. TECHNIQUE: Four views of the chest and left ribs were obtained. Comparison: Chest x-ray 08/11/11. FINDINGS: CHEST: The heart is not enlarged. No mediastinal mass. No acute infiltrate or vascular congestion. LEFT RIBS: No rib fracture identified. No destructive or erosive change. Calcified left hilar lymph nodes and calcified left lung nodules are present likely due to old granulomatous disease. IMPRESSION: 1. NO ACUTE CARDIAC OR PULMONARY ABNORMALITY. 2. NO LEFT RIB FRACTURE OR LEFT RIB ABNORMALITY IDENTIFIED. [facility] [id number] [facility]
== END 2019-06-21 14:11 | disposition home or self-care (01) ==
LOC: ER 12:21
DX: S20.212A Contusion of left front wall of thorax, initial encounter (principal); R07.81 Pleurodynia; W18.09XA Striking against other object with subsequent fall, initial encounter; Y92.009 Unspecified place in unspecified non-institutional (private) residence as the place of occurrence of the external cause
CPT/HCPCS: 96372; 99284; J1885

== ENCOUNTER 2019-11-16 05:24 | Emergency (ER) | payer BC ==
--- NOTE | 2019-11-16 05:40 | Emergency Department Record ---
History of Present Illness - General Chief complaint: ENT Stated complaint: MELONY/HARD TO SWALLOW Time Seen by Provider: 11/16/19 05:25 Source: Patient, Family Mode of Arrival: Ambulatory Limitations: No limitations - History of Present Illness Initial comments: 29 yo male presents with just over two weeks of nasal congestion, thick drainage, some sore throat, and discolor nasal drainage and sputum. No fever. No nausea or vomiting. No diarrhea. No swollen glands. The drainage he discharges from his nose is green with some blood. The sputum is light green without blood. No shortness of breath. No dyspnea. He has allergies and asthma. He does not need any refills on his inhalers. He smokes marijuana. MD complaint: Epistaxis, Other -: Week(s) (2) Location: Nose, Throat Severity: Moderate Quality: Aching Consistency: Constant Improves with: None Worsens with: Other (blowing his nose and coughing) Context-Epistaxis: Other (with nasal discharge) Context- Ear: Recent illness Associated Symptoms: Cough, Rhinorrhea - Related Data Previous Rx's Medication Instructions Recorded Amoxicillin 500Mg Capsule [Amoxil] 500 mg PO TID #30 tab 11/16/19 Methylprednisolone [Medrol Dose 4 mg PO DAILY #1 tab.ds.pk 11/16/19 Pack] Allergies Allergy/AdvReac Type Severity Reaction Status Date / Time No Known Drug Allergies Allergy Unverified 06/24/19 16:51 Review of Systems Constitutional: Denies: Chills, Fever, Malaise, Weakness Eyes: Denies: Eye discharge, Eye pain, Photophobia, Vision change ENT: Reports: As per HPI, Congestion, Ear pain, Epistaxis, Throat pain Respiratory: Reports: As per HPI, Cough. Denies: Dyspnea, Hemoptysis, Stridor, Wheezes Cardiovascular: Denies: Chest pain, Edema Endocrine: Denies: Fatigue, Polydipsia, Polyuria Gastrointestinal: Denies: Abdominal pain, Diarrhea, Nausea, Vomiting Genitourinary: Denies: Dysuria, Frequency, Hematuria Musculoskeletal: Denies: Arthralgia, Back pain, Myalgia Skin: Denies: Bruising, Change in color, Rash Neurological: Denies: Headache Psychiatric: Denies: Anxiety Hematological/Lymphatic: Denies: Easy bleeding, Easy bruising Past Medical History - SOCIAL HISTORY Smoking Status: Never smoker Drug Use: None - RESPIRATORY Hx Respiratory Disorders: Yes Hx Asthma: Yes - CARDIOVASCULAR Hx Cardio Disorders: No - NEURO Hx Neuro Disorders: No - GI Hx GI Disorders: No - Hx Genitourinary Disorders: Yes Hx Kidney Stones: Yes - ENDOCRINE Hx Endocrine Disorders: No - MUSCULOSKELETAL Hx Musculoskeletal Disorders: No - PSYCH Hx Psych Problems: No - HEMATOLOGY/ONCOLOGY Hx Hematology/Oncology Disorders: No Family Medical History Hx Stroke: Father Physical Exam - General General Appearance: Alert, Oriented x3, Cooperative, No acute distress Limitations: No limitations - Head Head exam: Atraumatic, Normal inspection - Eye Eye exam: Normal appearance, PERRL. negative: Conjunctival injection, Scleral icterus - ENT ENT exam: Normal exam, Mucous membranes moist, Normal orophraynx, TM's normal bilaterally. negative: Mucous membranes dry Ear exam: Normal external inspection Nasal Exam: Discharge, Dried blood, Sinus tenderness (maxillary), Other (bilateral nasal mucosal edema, right side worse than left with discharge). negative: Active bleeding, Foreign body Mouth exam: Tongue normal. negative: Muffled voice, Tongue elevation Teeth exam: Normal inspection. negative: Gingival enlargement Throat exam: Normal inspection, Other (Normal uvula). negative: Tonsillar erythema, Tonsillomegaly, Tonsillar exudate, R peritonsillar mass, L peritonsillar mass - Neck Neck exam: Normal inspection, Full ROM. negative: Lymphadenopathy, Tenderness, Thyromegaly - Respiratory Respiratory exam: Normal lung sounds bilaterally. negative: Accessory muscle use, Decreased breath sounds, Prolonged expiratory, Respiratory distress, Rhonchi, Stridor, Wheezes - Cardiovascular Cardiovascular Exam: Regular rate, Normal rhythm, Normal heart sounds - GI/Abdominal GI/Abdominal exam: Soft. negative: Tenderness - Rectal Rectal exam: Deferred - exam: Deferred - Extremities Extremities exam: Normal inspection - Neurological Neurological exam: Alert, Oriented X3 - Psychiatric Psychiatric exam: Normal affect, Normal mood - Skin Skin exam: Dry, Intact, Normal color, Warm Course Vital Signs 11/16/19 05:28 Temperature 98.6 F Pulse Rate [ 79 Pulse Ox Probe] Respiratory 20 Rate Blood Pressure 111/77 [Left Arm] Pulse Ox 95 - Reevaluation(s) Reevaluation #1: Vitals were reviewed No significant abnormalities 11/16/19 05:38 The patient's symptoms are consistent with a sinus infection with discolored drainage, maxillary tenderness, productive sputum Normal oral pharynx without mass or swelling He will be treated for a sinus infection given the duration of symptoms Disposition Disposition: Discharge Clinical Impression: Sinusitis Qualifiers: Sinusitis location: maxillary Chronicity: unspecified Qualified Code(s): J32.0 - Chronic maxillary sinusitis Disposition: Home, Self-Care Condition: (1) Good Instructions: Sinusitis (ED) Additional Instructions: Review this ER visit and the tests performed with your family doctor Call your doctor for the next available follow up appointment Return to the ER for a recheck immediately if worse, any new concerns or ques tions Take the prescriptions provided as directed Prescriptions: Amoxicillin 500Mg Capsule [Amoxil] 500 mg PO TID #30 tab Methylprednisolone [Medrol Dose Pack] 4 mg PO DAILY #1 tab.ds.pk Time of Disposition: 05:41 Quality - Quality Measures Quality Measures: N/A - Blood Pressure Screening Does Patient Have Any of the Following: No Blood Pressure Classification: Normal BP Reading Systolic Measurement: 111 Diastolic Measurement: 77 Screening for High Blood Pressure: < Normal BP, F/U Not Required > [[id number]]
== END 2019-11-16 05:49 | disposition home or self-care (01) ==
LOC: ER 05:24
DX: J32.0 Chronic maxillary sinusitis (principal); R06.00 Dyspnea, unspecified; R05 Cough
CPT/HCPCS: 99283